=== PATIENT | female | born 1970 | race Caucasian/White ===

== ENCOUNTER 2022-04-24 09:03 | Emergency (ER) | payer OTHER ==
[~2022-04-24] VITALS: Ht 165.1 cm; Wt 65.5 kg
[2022-04-24] MEDS ORDERED: diazePAM 10MG/2ML SYRINGE (J3360 PER 5MG) IV ONE (10:05)
[2022-04-24] MEDS ORDERED: KETOROLAC 30 MG/ML 1ML VIAL IV ONE (10:05)
[2022-04-24 11:37] VITALS: BP 140/80
== END 2022-04-24 11:54 | disposition home or self-care (01) ==
LOC: M ED 09:03
DX: M54.50 Low back pain, unspecified (principal); M54.2 Cervicalgia; M25.522 Pain in left elbow; V49.40XA Driver injured in collision with unspecified motor vehicles in traffic accident, initial encounter; I10 Essential (primary) hypertension; J45.909 Unspecified asthma, uncomplicated; M43.02 Spondylolysis, cervical region; M25.78 Osteophyte, vertebrae; M48.061 Spinal stenosis, lumbar region without neurogenic claudication
CPT/HCPCS: 72125; 72128; 72131; 73080; 96374; 96375; 99284; J1885; J3360